=== PATIENT | male | born 1935 | race Caucasian/White ===

== ENCOUNTER → 2019-01-05 | Outpatient (CLI) | payer OTHER ==
[~2019-01-05] MED LIST: AMLO5TAB13 PO; ATEN100T PO; CHOL400C7 PO; CYAN100088 PO; DICL75TA2 PO; FERR240T9 PO; HYDR-4683 PO; IODIXANOL 320MG/ML 100ML BTL IV ONE; IOHEXOL 350 MG/ML 100ML IJ ONE; MAGN250T8 PO; METH-532 PO; SACC1CAP3 PO; SODIUM CHLORIDE 0.9% 250 ML IV SCH; TEMA30CA PO; VITA10006 PO
[2019-01-05 13:50] VITALS: BP 146/61
--- NOTE | 2019-01-05 13:50 | NUR ---
[facility] PT ARRIVED [facility] FOR [facility] CHEST.ABD R/O POSSIBLE CA POST HOSPITALIZATION WITH PLEURAL EFFUSIONS. LABS DRAWN, V/S OBTAINED , UPDATED ORDERS RECEIVED AND NOTED.
--- NOTE | 2019-01-05 14:00 | NUR ---
IV insertion IV access obtained, via clean sterile technique by inserting gauge catheter at after attempt(s). IV secured properly. No trauma to site. Patient tolerated procedure well.
--- NOTE | 2019-01-05 14:20 | NUR ---
IV removal IV DC'd with sterile technique, catheter fully intact. Pressure dressing applied to site. Patient tolerated procedure well. Discharged with aftercare instructions per MD. NOTE:
[2019-01-05 14:30] VITALS: BP 149/89
--- NOTE | 2019-01-05 14:30 | NUR ---
Discharge Instructions See e-MAR for any mediations given with this visit. Patient education given on disease process. Patient verbalized understanding. Previous labs reviewed. Patient discharged in stable condition with after care instructions and follow up appointment. MEDICATION 1415 NS 250 ML IV X 1
== END | disposition home or self-care (01) ==
LOC: Rad HDHVI 13:42
PROVIDERS: ATTEND Internal Medicine Cardiovascular Disease
DX: I25.10 Atherosclerotic heart disease of native coronary artery without angina pectoris (principal); C49.A0 Gastrointestinal stromal tumor, unspecified site; J90 Pleural effusion, not elsewhere classified; E04.1 Nontoxic single thyroid nodule; J98.11 Atelectasis; I11.9 Hypertensive heart disease without heart failure
CPT/HCPCS: 36415; 71260; 82565; G0463; Q9967

== ENCOUNTER 2020-02-18 13:52 | Inpatient (IN) | payer OTHER ==
[~2020-02-18] VITALS: Ht 182.9 cm; Wt 90.5 kg
[~2020-02-18 13:52] MED LIST changes: -AMLO5TAB13 PO; +AMLO5TAB15 PO; -HYDR-4683 PO; +HYDR-4833 PO; -IODIXANOL 320MG/ML 100ML BTL IV ONE; -IOHEXOL 350 MG/ML 100ML IJ ONE; -SODIUM CHLORIDE 0.9% 250 ML IV SCH
[2020-02-18 15:45] LABS: Eosinophils # (auto) 0 10 ^3/uL (0-0.8)
[2020-02-18 15:47] LABS: Basophils # (auto) 0.1 10 ^3/uL (0-0.2); Basophils % (auto) 0.3 % (0.0-2.0); Eosinophils % (auto) 0.2 % (0.0-7.0); Hematocrit 29.2 % (41.0-53.0); Hemoglobin 9.1 g/dL (13.5-17.5); Lymphocytes % (auto) 4.1 % (10.0-50.0); Mean Corpuscular Hgb Conc. 31.3 g/dL (32.0-36.0); Mean Corpuscular Volume 79.7 fL (80.0-100.0); Monocytes # (auto) 2.7 10 ^3/uL (0-1.3); Monocytes % (auto) 10.8 % (0.0-12.0); Neutrophils # (auto) 21.4 10 ^3/uL (1.6-8.6); Neutrophils % (auto) 84.6 % (37.0-80.0); Nucleated Red Blood Cells % 0.1 %; Red Blood Cells 3.66 10^6/uL (4.5-5.90); White Blood Cell 25.3 10^3/uL (4.4-10.8)
[2020-02-18 16:00] LABS: Red Cell Distribution Width 20.5 % (11.8-14.3)
[2020-02-18 16:01] LABS: Albumin 1.5 g/dL (3.4-5.0); Anion Gap 12 (5-15); Blood Urea Nitrogen 59 mg/dL (7-18); Calcium 8.1 mg/dL (8.5-10.1); Carbon Dioxide 15 mmol/L (21-32); Chloride 110 mmol/L (98-107); Glucose 71 mg/dL (74-106); Sodium 137 mmol/L (136-145)
[2020-02-18 16:02] LABS: INR 1.19 (0.9-1.15); Partial Thromboplastin Time 25.9 sec (23.64-32.05); Platelet Count (auto) 824 10^3/uL (140-450)
[2020-02-18 16:09] LABS: Alanine Aminotransferase < 6 U/L (16-61); Alkaline Phosphatase 119 U/L (45-117); Aspartate Aminotransferase 12 U/L (15-37); BUN/Creatinine Ratio 29.6; Bilirubin, Total 0.3 mg/dL (0.2-1.0); GFR African American 41 mL/min; GFR Non-African American 34 mL/min; Total Protein 5.1 g/dL (6.4-8.2)
[2020-02-18] MEDS ORDERED: cefTRIAXone 1GM/50ML D5W 50 ML IV ONE (17:15)
[2020-02-18] MEDS ORDERED: SODIUM CHLORIDE 0.9% 500 ML IV ONE (17:15)
[2020-02-18 17:25] LABS: Urine Amorphous Crystal MOD /hpf (None Seen); Urine Bacteria NONE SEEN /hpf (None Seen); Urine Blood Negative /uL (Negative); Urine Mucus FEW (None Seen); Urine Specific Gravity 1.015 (1.001-1.035); Urine WBC <1 /hpf (0 - 3)
[2020-02-18] MEDS ORDERED: DEXTROSE 50% SYRINGE 50 ML IV ONE (17:35)
[2020-02-18] MEDS ORDERED: DEXTROSE (50%) 50ML SYRG IV ONE ×2 (17:45→18:45)
[2020-02-18] MEDS ORDERED: MORPHINE SULF INJ 2 MG/ML SYRINGE 1ML IV PRN (18:45)
[2020-02-18] MEDS ORDERED: DEXTROSE 10% 1,000 ML IV ONE (18:45)
[2020-02-18] MEDS ORDERED: NITROGLYCERIN 0.4 MG SL TAB SL PRN (18:45)
[2020-02-18] MEDS: ACCU-CHEK COMFORT CURVE STRIP VI SCH ×2 (20:58→22:20)
[2020-02-18] MEDS ORDERED: SODIUM BICARBONATE 8.4% INJ 50ML SYRINGE IV ONE (21:00)
[2020-02-18] MEDS: PIPERACILLIN-TAZO 4.5GM 100 ML IV SCH (22:20)
[2020-02-19] MEDS: ACCU-CHEK COMFORT CURVE STRIP VI SCH ×8 (00:06→22:00)
[2020-02-19] MEDS ORDERED: D5W/SOD CHLO 0.9% 1,000 ML IV ONE (04:30)
[2020-02-19] MEDS: PIPERACILLIN-TAZO 4.5GM 100 ML IV SCH ×3 (06:04→22:14)
[2020-02-19 08:44] LABS: Hemoglobin 8.3 g/dL (13.5-17.5)
[2020-02-19 08:46] LABS: Hematocrit 25.5 % (41.0-53.0); Mean Corpuscular Hemoglobin 25.5 pg (28.0-32.0); Mean Corpuscular Hgb Conc. 32.5 g/dL (32.0-36.0); Mean Corpuscular Volume 78.6 fL (80.0-100.0); Platelet Count (auto) 749 10^3/uL (140-450); Red Blood Cells 3.25 10^6/uL (4.5-5.90); Red Cell Distribution Width 20.9 % (11.8-14.3); White Blood Cell 23.3 10^3/uL (4.4-10.8)
[2020-02-19 08:48] LABS: Basophils % (manual) 0 (0.0-2.0); Blast Cells 0; Promyelocytes % 0; Reactive Lymphocytes 0
[2020-02-19 09:07] LABS: Alanine Aminotransferase < 6 U/L (16-61); Albumin 1.2 g/dL (3.4-5.0); Anion Gap 9 (5-15); Aspartate Aminotransferase 6 U/L (15-37); BUN/Creatinine Ratio 26.8; Blood Urea Nitrogen 52 mg/dL (7-18); Calcium 7.4 mg/dL (8.5-10.1); Carbon Dioxide 17 mmol/L (21-32); Chloride 111 mmol/L (98-107); GFR African American 42 mL/min; GFR Non-African American 35 mL/min; Glucose 122 mg/dL (74-106); Potassium 4.5 mmol/L (3.5-5.1); Sodium 137 mmol/L (136-145)
[2020-02-19 09:14] LABS: Alkaline Phosphatase 96 U/L (45-117); Bilirubin, Total 0.2 mg/dL (0.2-1.0); Total Protein 4.6 g/dL (6.4-8.2)
[2020-02-19 09:59] LABS: Band Neutrophils % (manual) 1; Eosinophils % (manual) 1 (0-7); Lymphocytes % (manual) 6 (10.0-50.0); Metamyelocytes % 1; Monocytes % (manual) 6 (0-12); Myelocytes % 3
[2020-02-19] MEDS ORDERED: VANCOMYCIN PER PHARMACY 0 MG IV SCH (11:15)
[2020-02-19] MEDS ORDERED: VANCOMYCIN 1GM/250ML 250 ML IV ONE (12:00)
[2020-02-19] MEDS ORDERED: MORPHINE SULF INJ 2 MG/ML SYRINGE 1ML IV ONE (16:00)
--- NOTE | 2020-02-19 16:00 | NUR ---
Telemetry admit from ER JONMALIA admitted to Telemetry unit after SBAR received. Patient oriented to blanquita BETANCOURT RN, unit, room, bed, and unit policies regarding patient care and visiting hours. Patient now on continuous telemetry monitoring, tele box #7 and telemetry reading on arrival to unit is Sinus Rhythm 98bpm. Patient placed on bedside oxygen, weighed by bedscale and encouraged to call if they need something. All questions and concerns addressed, patient verbalized understanding.
--- NOTE | 2020-02-19 16:25 | NUR ---
WOUND CARE NOTE: Wound care in to see patient per wound care request regarding multiple wounds/skin integrity issue that are noted present on admission. Patient is 84 y/o male with admitting diagnosis of Sepsis, Septic Shock. Patient is resting in bed in Rm. 246A. Patient is awake, alert and oriented to self. He's max assist in turning and repositioning and his Mannie score is 12. Patient is in no stated pain at this time and he appears to be in no pain using Mendoza Goodson Faces Pain Scale. Skin assessment done with the assistance of patient's nurse, STEPHEN Renteria. Noted patient's BL and BLE are edematous. Multiple non-blanchable redness (Stage 1 pressure injury noted) on patient's distal L medial foot, Rt heel, Lt elbow, RT and Lt sacrum. Patient is also incontinent of stool and passed moderate amount of loose stools. Amna care given. Noted redness to his buttock, perirectal, perineum and inner thighs consistent with moisture associated dermatitis. Applied Z Guard cream to sacral, buttocks and perineum. Complete linen changed. Intact erythema to edematous Lt lower leg also noted. Patient's Rt elbow noted with thick brown hyperpigmented, surrounding skin is pink, clean and dry, left open to air. Intact ecchymosis noted on patient's posterior Rt upper arm and Lt forearm, no drainage/odor noted, left open to air. Photograph of patient's wounds/skin issue are taken for reference. Patient tolerated well. Repositioned patient for comfort. STEPHEN Renteria at bedside. RECOMMENDATION: Nursing to continue BID/PRN cleaning and application of Z Guard cream to sacral, buttocks and perineum per MD order, Dietary consult,frequent turning and repositioning schedule as condition permits, redistribute pressure points with pillows; air mattress (ordered), elevate heels on pillows; frequent amna care/check, keep clean and dry, continue monitoring by wound care while patient is hospitalized. Addendum: 02/19/20 at 1749 by Cassia Martino RN Amended: Links added.
[2020-02-19 16:46] VITALS: BP 120/54
[2020-02-19 17:02] VITALS: BP 120/54
--- NOTE | 2020-02-19 17:22 | NUR ---
AIR MATTRESS: Air mattress ordered at [facility]. [facility] 02/19/20 @ 2317. Reference #[id number]. Please call [facility] at if needed to follow up. Addendum: 02/19/20 at 1723 by Cassia Martino RN Amended: Links added.
--- NOTE | 2020-02-19 19:40 | NUR ---
Opening Shift Note Assumed care of patient, lethargic, easily arousable. NGT to LIS. No S/S of distress/SOB or pain. Instructed on POC and to call for assist PRN, will continue to monitor for changes Q1hr and PRN.
[2020-02-19 22:00] VITALS: BP 102/56
[2020-02-20 05:00] VITALS: BP 137/62
--- NOTE | 2020-02-20 05:00 | NUR ---
Patient has liquid stool. Patient cleaned, linens completely changed. Stool sent. Care continued.
[2020-02-20] MEDS: PIPERACILLIN-TAZO 4.5GM 100 ML IV SCH ×2 (05:42→14:08)
[2020-02-20] MEDS: ACCU-CHEK COMFORT CURVE STRIP VI SCH ×4 (05:42→21:33)
--- NOTE | 2020-02-20 07:00 | NUR ---
Patient more awake, able to communicate better. Report given to oncoming RN.
[2020-02-20 08:36] VITALS: BP 130/86
--- NOTE | 2020-02-20 10:30 | NUR ---
Ultrasound at bed side for KUB order
--- NOTE | 2020-02-20 10:40 | NUR ---
MD Rivera at bed side. New orders received. Will carry out.
--- NOTE | 2020-02-20 11:02 | NUR ---
NGT clamped as per MDs order
[2020-02-20 11:31] LABS: Hematocrit 27.9 % (41.0-53.0); Red Cell Distribution Width 21.8 % (11.8-14.3); White Blood Cell 18.3 10^3/uL (4.4-10.8)
[2020-02-20 11:33] LABS: Hemoglobin 8.5 g/dL (13.5-17.5); Mean Corpuscular Hemoglobin 25.8 pg (28.0-32.0); Mean Corpuscular Hgb Conc. 30.4 g/dL (32.0-36.0); Mean Corpuscular Volume 85.1 fL (80.0-100.0); Platelet Count (auto) 498 10^3/uL (140-450); Red Blood Cells 3.27 10^6/uL (4.5-5.90)
[2020-02-20 11:36] LABS: Basophils % (manual) 0 (0.0-2.0); Blast Cells 0; Eosinophils % (manual) 0 (0-7); Metamyelocytes % 0; Promyelocytes % 0; Reactive Lymphocytes 0
[2020-02-20 11:59] LABS: Band Neutrophils % (manual) 9; Lymphocytes % (manual) 12 (10.0-50.0); Monocytes % (manual) 3 (0-12); Myelocytes % 2
[2020-02-20 12:01] LABS: Albumin 1.3 g/dL (3.4-5.0); Anion Gap 8 (5-15); Blood Urea Nitrogen 51 mg/dL (7-18); Calcium 7.5 mg/dL (8.5-10.1); Carbon Dioxide 17 mmol/L (21-32); Chloride 115 mmol/L (98-107); Glucose 82 mg/dL (74-106); Magnesium 2.4 mg/dL (1.6-2.6); Potassium 4.4 mmol/L (3.5-5.1); Sodium 140 mmol/L (136-145)
[2020-02-20 12:05] LABS: Alanine Aminotransferase < 6 U/L (16-61); Alkaline Phosphatase 97 U/L (45-117); Aspartate Aminotransferase 9 U/L (15-37); BUN/Creatinine Ratio 26.3; Bilirubin, Total 0.2 mg/dL (0.2-1.0); GFR African American 42 mL/min; GFR Non-African American 35 mL/min; Total Protein 4.9 g/dL (6.4-8.2)
[2020-02-20] MEDS ORDERED: VANCOMYCIN 1GM/250ML 250 ML IV ONE (12:30)
[2020-02-20 13:00] VITALS: BP 124/81
[2020-02-20 17:00] VITALS: BP 148/73
--- NOTE | 2020-02-20 19:00 | NUR ---
Opening Shift Note Assumed care of patient, patient lethargic but easily aroused and answered questions. No S/S of distress/SOB or pain at this time. Patient in the lowest possible position with bed rails up x2 and call light within reach. Chaney intact and fluids running, no complications noted at this time. Instructed on POC and to call for assist PRN, will continue to monitor for changes Q1hr and PRN.
[2020-02-20 20:00] VITALS: BP 152/70
[2020-02-20] MEDS: PIPERACILLIN-TAZOB 3.375GM 100 ML IV SCH (20:27)
[2020-02-20] MEDS: MORPHINE SULF INJ 2 MG/ML SYRINGE 1ML IV PRN (21:33)
[2020-02-20] MEDS: ONDANSETRON HCL 4 MG/2 ML VIAL IV PRN (21:34)
--- NOTE | 2020-02-20 21:34 | NUR ---
Patient complained of generalized pain of 6/10. Patient requested pain medications for bedtime. Will administer and continue to monitor.
--- NOTE | 2020-02-20 21:34 | NUR ---
Accucheck done. blood glucose is 77mg/dl. Will continue to monitor.
--- NOTE | 2020-02-21 01:42 | NUR ---
Patient wanted me to examine his right arm. Patient stated that he thought his right arm might be broken and would like an X-ray. When asked when the patient might have fallen or broken it, patient stated he fell several months ago. Upon examination, the right arm appeared to be more edematous than the left with weeping in the upper arm, a pulse was found and the patient able to move his right fingers. Capillary refill was <3 seconds. Patient was able to lift up his hand from the elbow as well as lift from the shoulder. Will continue to monitor and inform day shift of patients concerns.
[2020-02-21] MEDS: PIPERACILLIN-TAZOB 3.375GM 100 ML IV SCH ×4 (02:00→19:24)
[2020-02-21] MEDS: ACCU-CHEK COMFORT CURVE STRIP VI SCH ×4 (05:17→21:05)
--- NOTE | 2020-02-21 05:17 | NUR ---
Accucheck done. Patients blood sugar is 75mg/dl. Within normal limits. Will continue to monitor.
--- NOTE | 2020-02-21 08:00 | NUR ---
OPENING SHIFT NOTE ASSUMED CARE OF PATIENT AWAKE AND ALERT X2. NO S/S OF DISTRESS NOTED AND PATIENT HAS NO COMPLAINTS OF PAIN. UPDATED ON POC FOR THE DAY AND ALL QUESTIONS ANSWERED. BED IS IN LOWEST, LOCKED POSITION WITH SIDE RAILS UP X2, CALL LIGHT WITHIN REACH, AND BED ALARM ON FOR SAFETY. WILL CONTINUE TO MONITOR Q1H AND PRN.
[2020-02-21 09:00] VITALS: BP 128/63
[2020-02-21] MEDS ORDERED: EPOETIN ALFA 10,000 UNIT/1 ML VIAL SC ONE (10:15)
--- NOTE | 2020-02-21 10:30 | NUR ---
RADIOLOGY PLACED CALL TO RADIOLOGY REQUESTING KUB BE READ. STAFF STATED THEY WILL CALL IT IN TO [facility] RADIOLOGIST.
--- NOTE | 2020-02-21 10:55 | NUR ---
AT BEDSIDE DR MEJÍA AT BEDSIDE ROUNDING ON PATIENT.
--- NOTE | 2020-02-21 11:42 | NUR ---
BLOOD SUGAR PATIENT'S BLOOD SUGAR IS 67. JUICE PROVIDED.
[2020-02-21 13:00] VITALS: BP 128/69
[2020-02-21] MEDS ORDERED: VANCOMYCIN 750mg/250ml 250 ML IV SCH (13:00)
[2020-02-21 13:48] LABS: Hematocrit 29.8 % (41.0-53.0)
[2020-02-21 13:50] LABS: Hemoglobin 9.2 g/dL (13.5-17.5); Mean Corpuscular Hemoglobin 25.5 pg (28.0-32.0); Mean Corpuscular Hgb Conc. 30.7 g/dL (32.0-36.0); Red Blood Cells 3.59 10^6/uL (4.5-5.90); White Blood Cell 18.8 10^3/uL (4.4-10.8)
[2020-02-21 13:51] LABS: Red Cell Distribution Width 21.9 % (11.8-14.3)
[2020-02-21 13:54] LABS: Basophils % (manual) 0 (0.0-2.0); Eosinophils % (manual) 0 (0-7); Platelet Count (auto) 849 10^3/uL (140-450)
[2020-02-21 13:55] LABS: Blast Cells 0; Promyelocytes % 0; Reactive Lymphocytes 0
[2020-02-21 14:02] LABS: % Iron Saturation 36.4 % (20-55); BUN/Creatinine Ratio 24.4; Calcium 7.3 mg/dL (8.5-10.1); Potassium 4.3 mmol/L (3.5-5.1)
[2020-02-21 14:10] LABS: Band Neutrophils % (manual) 5; Lymphocytes % (manual) 11 (10.0-50.0); Metamyelocytes % 1; Monocytes % (manual) 7 (0-12); Myelocytes % 1
--- NOTE | 2020-02-21 14:24 | NUR ---
Nutrition Assessment Note PLEASE SEE ATTACHED LINK FOR COMPLETE ASSESSMENT Est Energy needs BW 94 [id number] kcals (23-25 kcal/kgBW), Est Protein needs: 94-112 gms/day (1.0-1.2 gm/kgBW r/t hypoalb). Will continue to monitor and reassess prn. Addendum: 02/21/20 at [address] Amended: Links added.
[2020-02-21 17:00] VITALS: BP 136/73
--- NOTE | 2020-02-21 19:26 | NUR ---
Opening Shift Note Assumed care of patient, awake and alert x 3. No S/S of distress/SOB. Bed is in lowest position and locked. Call light within reach. Board updated. Tele box number matches monitor and leads are in correct placement. Bed alarm on. Instructed on POC and to call for assist PRN, will continue to monitor for changes Q1hr and PRN.
--- NOTE | 2020-02-21 19:48 | NUR ---
IV removal IV to right hand found to be infiltrated with severe pitting edema. IV discontinued with clean technique, catheter fully intact. Pressure dressing applied to site. Patient tolerated well.
--- NOTE | 2020-02-21 20:42 | NUR ---
IV insertion IV access obtained, via clean technique by inserting a 22 gauge catheter into a vein in the left wrist after 2 attempts. IV secured properly. No trauma to site. Patient tolerated well.
[2020-02-21] MEDS: MORPHINE SULF INJ 2 MG/ML SYRINGE 1ML IV PRN (21:05)
[2020-02-21] MEDS: ONDANSETRON HCL 4 MG/2 ML VIAL IV PRN (21:06)
--- NOTE | 2020-02-21 21:41 | NUR ---
Paged MD Encarnacion to notify him of patient's increasing GI problems. Patient was advanced to clear liquid diet this morning after MD Encarnacion ordered NG tube to be removed. Patient ate clear liquids for lunch and had liquid BM today. However, patient is now unable or refuses to eat, his right upper and lower abdominal quadrants are hypoactive, and he is reporting abdominal pain 8 out of 10 in his generalized abdomen. He has also been vomiting small amounts of clear liquid diet, though no bile was noted in vomitus. Suction made available. Head of bed raised greater than 30 degrees. BP is also elevated (161/70). Gave morphine and will reassess BP later. Awaiting call back.
[2020-02-21 21:43] VITALS: BP 161/79
--- NOTE | 2020-02-21 22:13 | NUR ---
Blood glucose and BP reassessment Blood glucose: 98 mg/dl. BP: 148/76. Will continue to assess.
[2020-02-22] MEDS: PIPERACILLIN-TAZOB 3.375GM 100 ML IV SCH ×4 (02:24→19:56)
[2020-02-22] MEDS: MORPHINE SULF INJ 2 MG/ML SYRINGE 1ML IV PRN ×3 (04:57→22:00)
[2020-02-22] MEDS: ACCU-CHEK COMFORT CURVE STRIP VI SCH ×4 (05:05→21:59)
[2020-02-22 05:07] VITALS: BP 157/75
[2020-02-22 09:00] VITALS: BP 143/79
--- NOTE | 2020-02-22 10:30 | NUR ---
Midline Placement: Patient educated on need for midline placement. All risks and benefits explained and all questions and concerns addresses prior to procedure. 18g/10cm midline inserted via L CEPHALIC vein using Ultrasound. Sterile technique utilized. Blood return obtained from SINGLE lumen and flushed easily with NS using proper technique. Midline secured with saline lock; biodisc and occlusive dressing applied. Primary RN notified. Midline lot # [id number].
--- NOTE | 2020-02-22 11:43 | NUR ---
RADIOLOGY PLACED CALL TO RADIOLOGY REQUESTING KUB FROM 0400 ON 02/20/20 TO BE READ. PER STAFF THEY WILL CALL IT IN TO RADIOLOGIST FOR ME.
--- NOTE | 2020-02-22 13:22 | NUR ---
3RD CALL TO RADIOLOGY SPOKE TO [employer] AGAIN REGARDING KUB RESULTS. WAS AGAIN INFORMED THEY WILL CALL IT IN TO THE RADIOLOGIST AND IT PROBABLY ISN'T "TRANSFERRING OVER". WILL FOLLOW UP.
[2020-02-22] MEDS: ENSURE CLEAR Apple 8oz Carton PO SCH ×2 (13:44→18:18)
[2020-02-22] MEDS: FUROSEMIDE INJECTION 100 MG in SODIUM CHL 0.9% 100 ML IV SCH ×2 (13:44→18:18)
[2020-02-22] MEDS: DOBUTamine 1000MCG/ML 250 ML IV SCH (13:46)
[2020-02-22 16:33] VITALS: BP 136/67
--- NOTE | 2020-02-22 19:30 | NUR ---
Opening Shift Note Assumed care of patient, awake, AAOx2. No S/S of distress/SOB or pain. On 2L oxygen via nasal cannula. Patient on bedrest. Bed in lowest locked position, side rails up x2, call light within reach. Instructed on POC and to call for assist PRN, will continue to monitor for changes Q1hr and PRN.
[2020-02-22 22:00] VITALS: BP 140/66
[2020-02-23] MEDS: FUROSEMIDE INJECTION 100 MG in SODIUM CHL 0.9% 100 ML IV SCH ×6 (02:14→23:33)
[2020-02-23] MEDS: PIPERACILLIN-TAZOB 3.375GM 100 ML IV SCH ×2 (02:15→08:46)
[2020-02-23] MEDS: MORPHINE SULF INJ 2 MG/ML SYRINGE 1ML IV PRN ×2 (02:15→22:02)
[2020-02-23 05:00] VITALS: BP 120/90
[2020-02-23] MEDS: ACCU-CHEK COMFORT CURVE STRIP VI SCH ×4 (06:00→22:02)
[2020-02-23] MEDS: DOBUTamine 1000MCG/ML 250 ML IV SCH (06:01)
[2020-02-23 06:37] LABS: Hemoglobin 8.3 g/dL (13.5-17.5)
[2020-02-23 06:41] LABS: Hematocrit 25.8 % (41.0-53.0); Mean Corpuscular Hemoglobin 25.8 pg (28.0-32.0); Mean Corpuscular Hgb Conc. 32.2 g/dL (32.0-36.0); Mean Corpuscular Volume 80.1 fL (80.0-100.0); Platelet Count (auto) 743 10^3/uL (140-450); Red Blood Cells 3.21 10^6/uL (4.5-5.90); White Blood Cell 16.9 10^3/uL (4.4-10.8)
[2020-02-23 06:50] LABS: Red Cell Distribution Width 21.6 % (11.8-14.3)
[2020-02-23 06:51] LABS: Band Neutrophils % (manual) 0; Basophils % (manual) 0 (0.0-2.0); Blast Cells 0; Promyelocytes % 0; Reactive Lymphocytes 0
[2020-02-23 07:11] LABS: Albumin 1.4 g/dL (3.4-5.0); Calcium 7.2 mg/dL (8.5-10.1); Potassium 3.9 mmol/L (3.5-5.1)
[2020-02-23 07:14] LABS: BUN/Creatinine Ratio 20.7; Bilirubin, Total 0.2 mg/dL (0.2-1.0); Total Protein 5.1 g/dL (6.4-8.2)
[2020-02-23 07:15] LABS: Eosinophils % (manual) 1 (0-7); Lymphocytes % (manual) 17 (10.0-50.0); Metamyelocytes % 3; Monocytes % (manual) 1 (0-12); Myelocytes % 3
--- NOTE | 2020-02-23 07:45 | NUR ---
Opening Shift Note Assumed care of patient, awake and alert. No S/S of distress/SOB or pain. Noted generalized pitting edema, legs and arms elevated with a pillow. Instructed on POC and to call for assist PRN, will continue to monitor for changes Q1hr and PRN.
[2020-02-23 08:00] VITALS: BP 138/65
[2020-02-23] MEDS: ENSURE CLEAR Apple 8oz Carton PO SCH ×3 (08:47→17:57)
[2020-02-23] MEDS: LINEZOLID 600MG/300ML 300 ML IV SCH ×2 (11:20→23:25)
[2020-02-23 12:00] VITALS: BP 120/60
[2020-02-23] MEDS: MEROPENEM 500MG IVPB 50 ML IV SCH (14:45)
--- NOTE | 2020-02-23 15:15 | NUR ---
assessment Patient is a 84 year old male who is confused. Per patients Jonna prior to admission patient lived home with her and functioned with assistance from her and their son Asher. Per Jonna patient went to [facility] for 2 weeks in ICU for vomiting and diarrhea. Patient was discharged home worse than he was on admission per Jonna. Patients home health nurse came to see patient the next day and informed Jonna to take patient back to the hospital and patient was admitted here. Per Jonna patient has a fww, wheelchair, and bedside commode for home use. Patients PCP is Dr Bermudez. Patient may need home IV ABX on discharge. I informed Jonna I would continue to monitor for patients needs and will keep her posted. Jonna verbalized understanding. Addendum: 02/23/20 at 1555 by Alyssa RAMOS Amended: Links added.
--- NOTE | 2020-02-23 15:23 | NUR ---
Nutrition Followup Note Wt 92.5kg Pt with inadequate po intake aeb pt with avg po intake of 23% x 3 days per RN doc. Continue with Ensure Clear while pt on clear liquid diet, consider ensure enlive if pt diet advances and continues to have poor po intake. Est Energy needs BW 94 [id number] kcals (23-25 kcal/kgBW), Est Protein needs: 94-112 gms/day (1.0-1.2 gm/kgBW r/t hypoalb). Will continue to monitor and reassess prn. Labs: BUN 44H, Creat 2.13H, Ca 7.2L, Alb 1.4L BM: 2 02/22 per RN doc Skin: BS 14 mod risk, full details in personal care aid doc. PES: Altered nutrition related lab values r.t current chronic medical condition aeb elev RFT severe hypoalb Comments 1) advance diet as medically feasible 2) consider prostat 1 packet bid as RFt improve 3) continue current plan of care Expected Outcomes/Goals: pt will advance and teressa po pt will have improved labs f/u 2-3 days
[2020-02-23 16:59] VITALS: BP 126/63
--- NOTE | 2020-02-23 19:30 | NUR ---
Opening Shift Note Assumed care of patient, awake and alert. No S/S of distress/SOB or pain. Instructed on POC and to call for assist PRN, will continue to monitor for changes Q1hr and PRN.
[2020-02-23 21:48] VITALS: BP 129/70
[2020-02-24] MEDS: DOBUTamine 1000MCG/ML 250 ML IV SCH ×2 (01:00→18:13)
--- NOTE | 2020-02-24 01:30 | NUR ---
Mercado was leaking - noted on wet pads. Readjusted mercado by deflating balloon, advancing catheter and reinflating. Pulled to make sure it was snug. Will continue to monitor.
[2020-02-24] MEDS: MEROPENEM 500MG IVPB 50 ML IV SCH ×2 (03:11→14:48)
[2020-02-24] MEDS: FUROSEMIDE INJECTION 100 MG in SODIUM CHL 0.9% 100 ML IV SCH ×4 (04:37→19:36)
[2020-02-24 05:24] VITALS: BP 125/61
[2020-02-24] MEDS: ACCU-CHEK COMFORT CURVE STRIP VI SCH ×4 (05:45→21:23)
--- NOTE | 2020-02-24 06:17 | NUR ---
No further leakage of mercado noted.
--- NOTE | 2020-02-24 07:20 | NUR ---
Opening Shift Note Received report on the patient. Awake lying in bed. Patient shows no signs of distress at this time. Discussed the plan of care with the patient. Bed in lowest position, side rails up x2, and the call light is within reach.
[2020-02-24 07:58] VITALS: BP 139/77
[2020-02-24] MEDS: ENSURE CLEAR Apple 8oz Carton PO SCH ×3 (08:31→18:12)
[2020-02-24] MEDS: LINEZOLID 600MG/300ML 300 ML IV SCH ×2 (10:50→23:01)
[2020-02-24 12:00] VITALS: BP 126/72
--- NOTE | 2020-02-24 12:21 | NUR ---
Accu Check done. Blood glucose is 98.
[2020-02-24 17:00] VITALS: BP 145/80
--- NOTE | 2020-02-24 18:21 | NUR ---
Accu check done. Blood glucose is 78. Gave patient 2 boxes of apple juice.
--- NOTE | 2020-02-24 19:05 | NUR ---
Closing Shift Note Endorsed care to RN Chilango. Patient shows no signs of distress at this time.
--- NOTE | 2020-02-24 19:30 | NUR ---
Opening Shift Note Assumed care of patient, awake and alert. No S/S of distress/SOB. Instructed on POC and to call for assist PRN, will continue to monitor for changes Q1hr and PRN.
[2020-02-24] MEDS: MORPHINE SULF INJ 2 MG/ML SYRINGE 1ML IV PRN (19:35)
[2020-02-24 21:37] VITALS: BP 121/77
[2020-02-25] MEDS: FUROSEMIDE INJECTION 100 MG in SODIUM CHL 0.9% 100 ML IV SCH ×2 (00:59→05:35)
[2020-02-25] MEDS: MEROPENEM 500MG IVPB 50 ML IV SCH ×2 (03:02→15:00)
[2020-02-25] MEDS: MORPHINE SULF INJ 2 MG/ML SYRINGE 1ML IV PRN ×2 (03:03→10:43)
[2020-02-25 04:31] VITALS: BP 122/65
[2020-02-25] MEDS: ACCU-CHEK COMFORT CURVE STRIP VI SCH ×2 (05:35→12:55)
[2020-02-25 07:25] LABS: Hemoglobin 8.5 g/dL (13.5-17.5)
[2020-02-25 07:28] LABS: Hematocrit 26.4 % (41.0-53.0); Mean Corpuscular Hemoglobin 25.1 pg (28.0-32.0); Mean Corpuscular Hgb Conc. 32.2 g/dL (32.0-36.0); Mean Corpuscular Volume 77.8 fL (80.0-100.0); Platelet Count (auto) 548 10^3/uL (140-450); Red Blood Cells 3.39 10^6/uL (4.5-5.90); White Blood Cell 13.3 10^3/uL (4.4-10.8)
[2020-02-25 07:38] LABS: Calcium 6.5 mg/dL (8.5-10.1)
[2020-02-25 07:41] LABS: BUN/Creatinine Ratio 19.6
[2020-02-25 07:42] LABS: Red Cell Distribution Width 21.3 % (11.8-14.3)
[2020-02-25 07:45] LABS: Basophils % (manual) 0 (0.0-2.0); Blast Cells 0; Myelocytes % 0; Promyelocytes % 0; Reactive Lymphocytes 0
[2020-02-25 08:35] VITALS: BP 126/73
[2020-02-25] MEDS: ENSURE CLEAR Apple 8oz Carton PO SCH ×2 (08:37→12:55)
[2020-02-25 09:02] LABS: Band Neutrophils % (manual) 1; Eosinophils % (manual) 2 (0-7); Lymphocytes % (manual) 5 (10.0-50.0); Metamyelocytes % 2; Monocytes % (manual) 14 (0-12)
[2020-02-25] MEDS ORDERED: POTASSIUM EFFERVESENT TAB 25 MEQ PO SCH (10:00)
[2020-02-25] MEDS ORDERED: FUROSEMIDE 20 MG TAB PO SCH (10:00)
--- NOTE | 2020-02-25 10:46 | NUR ---
Dr. Encarnacion at bedside. New orders received.
[2020-02-25] MEDS: LINEZOLID 600MG/300ML 300 ML IV SCH (10:50)
--- NOTE | 2020-02-25 10:50 | NUR ---
Received a call from Chantel at [facility]. [facility] will be here between 3-4. Chantel also told me to D/C the patient with the jess.
--- NOTE | 2020-02-25 12:59 | NUR ---
Accu check done. Blood glucose is 105
[2020-02-25 13:00] VITALS: BP 130/74
[2020-02-25 13:08] VITALS: BP 130/74
--- NOTE | 2020-02-25 14:01 | NUR ---
D/C Planning Per consult for Hospice evaluation. Faxed clinical information to [facility] as requested. Patient has been accepted and will be seen upon d/c day.Transportation has been arranged with [facility] between 14:00-17:00. STEPHEN Hunter has been informed.
--- NOTE | 2020-02-25 16:09 | NUR ---
Discharge instructions given as ordered. Encourage to follow up with PMD as instructed. All questions and concerns addressed. Patient verbalized understanding. Medication reconciliation form completed and copy given to patient. IV removed with catheter intact, pressure dressing applied. Telemetry unit returned to ICU. Patient taken to vehicle via gurney with all personal belongings, accompanied by staff. No distress noted at time of departure.
== END 2020-02-25 16:11 | disposition hospice, home (50) | DRG 871 ==
LOC: EDBD 13:52 → ER 13:52 → TELE 13:53 → TELE-EAST 02-19 15:40
PROVIDERS: ADMIT Internal Medicine Cardiovascular Disease; ATTEND Internal Medicine Cardiovascular Disease
DX: A41.9 Sepsis, unspecified organism (principal); G93.41 Metabolic encephalopathy; J18.9 Pneumonia, unspecified organism; E43 Unspecified severe protein-calorie malnutrition; N17.9 Acute kidney failure, unspecified; K56.7 Ileus, unspecified; I13.0 Hypertensive heart and chronic kidney disease with heart failure and stage 1 through stage 4 chronic kidney disease, or unspecified chronic kidney disease; I50.32 Chronic diastolic (congestive) heart failure; E16.2 Hypoglycemia, unspecified; Z66 Do not resuscitate; I73.9 Peripheral vascular disease, unspecified; Z51.5 Encounter for palliative care; D47.3 Essential (hemorrhagic) thrombocythemia; N18.9 Chronic kidney disease, unspecified; D64.9 Anemia, unspecified; Z91.041 Radiographic dye allergy status; Z79.899 Other long term (current) drug therapy; Z68.27 Body mass index [BMI] 27.0-27.9, adult; Z85.00 Personal history of malignant neoplasm of unspecified digestive organ
CPT/HCPCS: 36415; 36600; 71045; 71250; 73060; 74018; 74176; 80048; 80053; 80202; 81001; 82805; 82962; 83036; 83540; 83550; 83605; 83735; 83880; 84443; 84484; 85007; 85025; 85027; 85045; 85610; 85730; 87040; 87045; 87081; 87086; 87427; 87493; 93005; G0378; J0696; J0885; J2185; J2405; J2543; J7042